=== PATIENT | female | born 1950 | race Two or more races ===

== ENCOUNTER 2018-03-13 11:08 | Day surgery (SDC) | payer MEDICARE, BC ==
--- NOTE | 2018-03-12 22:08 | Pre-Procedure Note/Attestation ---
Pre-Procedure Note/Attestation Complete Prior to Procedure Planned Procedure: left Procedure Narrative: Removal of pterygium and placement of conjunctival autograft with possible Mitomycin - C, left eye Indications for Procedure Pre-Operative Diagnosis: Progressive pterygium, left eye Attestation I attest that I discussed the nature of the procedure; its benefits; risks and complications; and alternatives (and the risks and benefits of such alternatives ), prior to the procedure, with the patient (or the patient's legal inbound sales representative). I attest that, if there was a reasonable possibility of needing a blood transfusion, the patient (or the patient's legal inbound sales representative) was given the [place] Department of Health Services standardized written summary, pursuant to the Jeromy Laurier Blood Safety Act ([place] Health and Safety Code # 1645, as amended). I attest that I re-evaluated the patient just prior to the surgery and that there has been no change in the patient's H&P, except as documented below: Paresh Chapman MD Mar 12, 2018 22:08
[2018-03-13] VITALS (9 sets, daily range): BP systolic 154–180; BP diastolic 81–99
[~2018-03-13] VITALS: Ht 152.4 cm; Wt 50.8 kg
[~2018-03-13 11:08] MED LIST: MitoMYcin Opth 0.2 mg/ml Syringe LEFT EYE ONE
[2018-03-13] MEDS ORDERED: AMLODIPINE BES2.5 MG ORAL (12:03)
[2018-03-13] MEDS ORDERED: PANTOPRAZOLE SO40 MG ORAL (12:04)
[2018-03-13] MEDS ORDERED: BENICAR20 MG ORAL (12:05)
[2018-03-13] MEDS: Tobradex Opth Susp 2.5ml LEFT EYE SCH ×3 (12:24→12:38)
[2018-03-13] MEDS: Vigamox Opth Soln 3ml LEFT EYE SCH ×3 (12:25→12:38)
[2018-03-13] MEDS: Akten 3.5% 1ml Btl LEFT EYE SCH ×3 (12:26→12:38)
[2018-03-13] MEDS ORDERED: Lidocaine 2% MPF 5ml Vial INJ ONE (15:56)
[2018-03-13] MEDS ORDERED: Bupivacaine 0.75% 30ml vial INJ ONE (15:57)
[2018-03-13] MEDS ORDERED: BSS 15ml BTL ONE ×3 (15:57→17:51)
[2018-03-13] MEDS ORDERED: Tetracaine 0.5% Opth 4ml Soln ONE (15:57)
[2018-03-13] MEDS ORDERED: Lidocaine 2% 20mg/ml/Epi 0.005mg/ml 20ml vial ONE (16:15)
[2018-03-13] MEDS ORDERED: Sterile Water Irrig 1000ml IRRIG ONE (17:00)
[2018-03-13] MEDS ORDERED: LR 1000ml ONE (17:00)
[2018-03-13] MEDS ORDERED: NS Irrig 1000ml ONE (17:00)
[2018-03-13] MEDS ORDERED: Midazolam 2mg/2ml Inj ONE (17:10)
[2018-03-13] MEDS ORDERED: Alfentanil 2ml Inj ONE (17:10)
[2018-03-13] MEDS ORDERED: Lidocaine 1% MPF 10mg/ml 5ml ONE (17:11)
[2018-03-13] MEDS ORDERED: Propofol 200mg/20ml IV ONE (17:11)
[2018-03-13] MEDS ORDERED: LR 1000ml 1,000 ML IVLG SCH (17:27)
[2018-03-13] MEDS ORDERED: Atropine Sulfate 0.4mg/ml inj IVP PRN (17:30)
[2018-03-13] MEDS ORDERED: LORazepam Inj 2mg/ml 1ml IV PRN (17:30)
[2018-03-13] MEDS ORDERED: Midazolam 2mg/2ml Inj IVP PRN (17:30)
[2018-03-13] MEDS ORDERED: oxyCODONE HCL/Acetaminophen 5/325mg ORAL PRN (17:30)
[2018-03-13] MEDS ORDERED: Metoclopramide 10mg/2ml Inj IVP PRN (17:30)
[2018-03-13] MEDS ORDERED: Norco 5mg/325mg tab ORAL PRN (17:30)
[2018-03-13] MEDS ORDERED: DiphenhydrAMINE 50mg/ml Inj IVP PRN (17:30)
[2018-03-13] MEDS ORDERED: Ketorolac 30mg Inj IV PRN ×2 (17:30)
[2018-03-13] MEDS ORDERED: fentaNYL 100 mcg/2 mL IV PRN (17:30)
[2018-03-13] MEDS ORDERED: Meperidine 50mg/ml Inj(FOR RIGORS ONLY) IVP PRN (17:30)
[2018-03-13] MEDS ORDERED: HYDROcodone/Acetamin 7.5/325 tab ORAL PRN (17:30)
[2018-03-13] MEDS ORDERED: Hydromorphone 0.5mg/0.5ml inj IVP PRN (17:30)
--- NOTE | 2018-03-13 17:30 | Anethesia Preoperative Eval ---
Anesthesia Pre-op PMH/ROS General Date of Evaluation: Mar 13, 2018 Time of Evaluation: 17:01 Anesthesiologist: Chang ASA Score: ASA 3 Mallampati Score Class I : Soft palate, uvula, fauces, pillars visible Class II: Soft palate, uvula, fauces visible Class III: Soft palate, base of uvula visible Class IV: Only hard plate visible Mallampati Classification: Class II Surgeon: Ari Diagnosis: Pterygium OS Surgical Procedure: Pterygium Removal OS Anesthesia History: none Family History: no anesthesia problems Allergies: Coded Allergies: No Known Allergies (Unverified , 03/12/18) Medications: see eMAR Patient NPO?: Yes Past Medical History Cardiovascular: Reports: HTN Gastrointestinal/Genitourinary: Reports: GERD Musculoskeletal/Integumentary: Reports: OA Anesthesia Pre-op Phys. Exam Physician Exam Last Vital Signs Date Time Temp Pulse Resp B/P (MAP) Pulse Ox O2 Delivery O2 Flow Rate FiO2 03/13/18 12:29 96.6 56 18 156/81 99 Room Air Constitutional: NAD Neurologic: CN 2-12 intact Cardiovascular: RRR Respiratory: CTA Gastrointestinal: S/NT/ND Airway Exam Mallampati Score: Class II MO: full ROM: limited Teeth: missing, intact Anesthesia Pre-op A/P Risk Assessment & Plan Assessment: ASA 3 Plan: GA, Block Status Change Before Surgery: Nitin Jolley MD Mar 13, 2018 17:30
--- NOTE | 2018-03-13 17:31 | Immediate Post-Op Evaluation ---
Immediate Post-Op Evalulation Immediate Post-Op Evalulation Procedure: Pterygium OS Date of Evaluation: Mar 13, 2018 Time of Evaluation: 18:30 IV Fluids: 1000 LR Blood Products: 0 Estimated Blood Loss: 1 Urinary Output: 0 Blood Pressure Systolic: 180 Blood Pressure Diastolic: 99 Pulse Rate: 75 Respiratory Rate: 16 O2 Sat by Pulse Oximetry: 100 Temperature (Fahrenheit): 97.1 Pain Score (1-10): 1 Nausea: No Vomiting: No Complications 0 Patient Status: awake, reacts, patent, none Hydration Status: adequate Nitin Downing MD Mar 13, 2018 17:31
--- NOTE | 2018-03-13 17:32 | 48 Hour Post Anesthesia Eval ---
Post Anesthesia Evaluation Procedure: Pterygium OS Date of Evaluation: Mar 13, 2018 Time of Evaluation: 20:34 Blood Pressure Systolic: 179 0: 98 Pulse Rate: 67 Respiratory Rate: 18 Temperature (Fahrenheit): 98.2 O2 Sat by Pulse Oximetry: 100 Airway: patent Nausea: No Vomiting: No Pain Intensity: 1 Hydration Status: adequate Cardiopulmonary Status: Stable Mental Status/LOC: patient returned to baseline Follow-up Care/Observations: 0 Post-Anesthesia Complications: 0 Follow-up care needed: ready to discharge Nitin Downing MD Mar 13, 2018 17:32
--- NOTE | 2018-03-13 18:18 | Discharge Instructions ---
Discharge Instructions Discharge Instructions Follow Up Orders Leave patch and shield in place until the appointment with Dr Chapman tomorrow Followup tomorrow in Dr Chapman's office For Congestive Heart Failure Reminder Report to your physician any weight gain of 5 pounds or more in one week. Paresh Chapman MD Mar 13, 2018 18:18
--- NOTE | 2018-03-13 18:21 | Brief Operative Note ---
Immediate Post Operative Note Operative Note Pre-op Diagnosis: Progressive pterygium, left eye Procedure: Removal of pterygium and placement of conjunctival autograft, OS Use of mitomycin - C Post-op Diagnosis: same as pre-op Surgeon: Nathalia Chapman MD MS Event Marketing Coordinator: none Anesthesiologist: Dr Downing Anesthesia: local, MAC Specimen: yes - pterygium Complications: none Fluids: see chart Implant(s) used?: No Paresh Chapman MD Mar 13, 2018 18:21
[2018-03-13] MEDS ORDERED: Carbachol 0.01% Op Soln 1.5ml vial ONE (18:37)
[2018-03-13] MEDS ORDERED: Dexamethasone 4mg/ml vial ONE (18:44)
--- NOTE | 2018-03-20 12:45 | Operative Note - Dictated ---
DATE OF OPERATION: 03/13/2018 SURGEON: Paresh Chapman M.D. RAZOR GRINDER SURGEON: None. ANESTHESIOLOGIST: Nitin Downing M.D. ANESTHESIA: Local/standby/monitored anesthesia care. PREOPERATIVE DIAGNOSIS: Progressive pterygium, left eye. POSTOPERATIVE DIAGNOSIS: Progressive pterygium, left eye. PROCEDURES: 1. Removal of pterygium, left eye. 2. Placement of conjunctival autograft, left eye. 3. Use of mitomycin-C, left eye. SPECIMENS: Pterygium to Pathology. COMPLICATIONS: None. INDICATIONS FOR SURGERY: The patient has had progressive growth of pterygium in the left eye and chronically red despite using steroid drops. The patient understands risks of surgery including infection, bleeding, need for further surgery, loss of vision, loss of the eye, recurrence and understands these risks and elects to proceed with surgery. FINDINGS: The patient had a pterygium measuring approximately 5 mm vertically x 2.5 mm horizontally. OPERATIVE NOTE: After informed consent was obtained, the patient was brought into the operating room and placed in supine position. Cardiac and respiratory monitors were attached. A time-out was performed and all criteria were met and everyone in the room agreed. Following IV sedation, a retrobulbar block followed by modified Van Lint block were given using a 50:50 mixture of 0.75% Marcaine and 1% lidocaine into the left eye. The left eye was then draped and prepped in sterile manner for ocular surgery. A lid speculum was placed in the eye. A double-arm 6-0 silk was placed through the superior and inferior limbus. The globe was rotated. The neck and tail of the pterygium were marked using a cautery. A 1% lidocaine was injected into the tail and neck of the pterygium to lift it off the sclera. There appeared to be no adhesions to the sclera. The tail and neck were then dissected free from the recipient. A hockey blade [place] blade was used to remove the head of the pterygium . Several pieces of Weck-Erum sponge soaked in 0.02% mitomycin were placed onto the scleral bed for approximately 1 minute. These were then removed and was irrigated copiously with 2 bottles of BSS. The wound was then rotated inferiorly and the corresponding conjunctiva was marked according to the recipient bed. This was then injected with 1% lidocaine and then was dissected free as an autograft. into the recipient bed as well as onto the donor posterior surface of the autograft. The autograft was then placed into the recipient bed and smoothed with a muscle hook. There was also approximately four 8-0 Vicryl sutures were placed to reapproximate the recipient conjunctival margins. The lid speculum and drapes were removed from the eye and then the 6-0 silk suture was removed. Sub-Tenon's injections of Decadron and gentamicin were then given. The lid speculum and drapes were removed from the eye and drops of Pred Forte and Vigamox were applied to the eye followed by Maxitrol ointment and then two patches and a shield. The patient left the operating room in awake, alert, and in stable condition. Paresh Chapman M.D. DR: WILL JOB#: [id number] CC:
== END 2018-03-13 19:30 | disposition home or self-care (01) ==
LOC: SUR 11:08
DX: H11.002 Unspecified pterygium of left eye (principal); I12.9 Hypertensive chronic kidney disease with stage 1 through stage 4 chronic kidney disease, or unspecified chronic kidney disease; N18.2 Chronic kidney disease, stage 2 (mild); K21.9 Gastro-esophageal reflux disease without esophagitis; M19.90 Unspecified osteoarthritis, unspecified site
CPT/HCPCS: 65426; J0360; J1100; J1885; J2250; J2704; J3490; J7315; 94003; 94150

== ENCOUNTER 2018-07-10 08:43 | Day surgery (SDC) | payer MEDICARE, BC ==
[2018-07-10] VITALS (11 sets, daily range): BP systolic 136–167; BP diastolic 80–92
[~2018-07-10] VITALS: Ht 152.4 cm; Wt 51.7 kg
--- NOTE | 2018-07-10 07:18 | Pre-Procedure Note/Attestation ---
Pre-Procedure Note/Attestation Complete Prior to Procedure Planned Procedure: right - removal of pterygium and placement of conjunctival autograft, right eye Procedure Narrative: removal of pterygium and placement of conjunctival autograft, right eye Indications for Procedure Pre-Operative Diagnosis: Large pterygium, right eye Attestation I attest that I discussed the nature of the procedure; its benefits; risks and complications; and alternatives (and the risks and benefits of such alternatives ), prior to the procedure, with the patient (or the patient's legal employee relations representative). I attest that, if there was a reasonable possibility of needing a blood transfusion, the patient (or the patient's legal employee relations representative) was given the [place] Department of Health Services standardized written summary, pursuant to the Jeromy Jerry Blood Safety Act ([place] Health and Safety Code # 1645, as amended). I attest that I re-evaluated the patient just prior to the surgery and that there has been no change in the patient's H&P, except as documented below: Paresh Chapman MD Jul 10, 2018 07:18
[~2018-07-10 08:43] MED LIST changes: +AMLODIPINE BES2.5 MG ORAL; +BENICAR20 MG ORAL; -MitoMYcin Opth 0.2 mg/ml Syringe LEFT EYE ONE; +PANTOPRAZOLE SO40 MG ORAL
[2018-07-10] MEDS: Vigamox Opth Soln 3ml RIGHT EYE SCH ×3 (09:13→09:53)
[2018-07-10] MEDS: Akten 3.5% 1ml Btl RIGHT EYE SCH ×3 (09:14→09:54)
[2018-07-10] MEDS: Tobradex Opth Susp 2.5ml RIGHT EYE SCH ×3 (09:14→09:53)
[2018-07-10] MEDS ORDERED: Alfentanil 2ml Inj ONE (10:16)
[2018-07-10] MEDS ORDERED: Midazolam 2mg/2ml Inj ONE (10:16)
[2018-07-10] MEDS ORDERED: Lidocaine 1% MPF 10mg/ml 5ml ONE ×2 (10:30→11:30)
[2018-07-10] MEDS ORDERED: BSS 15ml BTL ONE (10:31)
[2018-07-10] MEDS ORDERED: Povidone-Iodine 5% opth solution ONE (10:31)
[2018-07-10] MEDS ORDERED: Lidocaine 2% 20mg/ml/Epi 0.005mg/ml 20ml vial ONE (10:31)
[2018-07-10] MEDS ORDERED: Maxitrol Opth Oint 3.5gm ONE (10:31)
[2018-07-10] MEDS ORDERED: Bupivacaine 0.75% 30ml vial INJ ONE (10:31)
[2018-07-10] MEDS ORDERED: Tetracaine 0.5% Opth 4ml Soln ONE (10:31)
[2018-07-10] MEDS ORDERED: LR 1000ml 1,000 ML IVLG SCH (11:01)
--- NOTE | 2018-07-10 11:06 | Anethesia Preoperative Eval ---
Anesthesia Pre-op PMH/ROS General Date of Evaluation: Jul 10, 2018 Time of Evaluation: 11:24 Anesthesiologist: Chang ASA Score: ASA 3 Mallampati Score Class I : Soft palate, uvula, fauces, pillars visible Class II: Soft palate, uvula, fauces visible Class III: Soft palate, base of uvula visible Class IV: Only hard plate visible Mallampati Classification: Class II Surgeon: Ari Diagnosis: Pterygium OD Surgical Procedure: Pterygium Removal With Conjunctival Autograft Anesthesia History: none Family History: no anesthesia problems Allergies: Coded Allergies: No Known Allergies (Unverified , 03/12/18) Medications: see eMAR Patient NPO?: Yes Past Medical History Cardiovascular: Reports: HTN Gastrointestinal/Genitourinary: Reports: GERD HEENT: Reports: cataract (L), cataract (R) Musculoskeletal/Integumentary: Reports: OA PSxH Narrative: Pterygium Removal 1 year [employer] Anesthesia Pre-op Phys. Exam Physician Exam Last Vital Signs Date Time Temp Pulse Resp B/P (MAP) Pulse Ox O2 Delivery O2 Flow Rate FiO2 07/10/18 09:52 Room Air 07/10/18 09:17 97.0 56 18 149/80 98 Constitutional: NAD Neurologic: CN 2-12 intact Cardiovascular: RRR Respiratory: CTA Gastrointestinal: S/NT/ND Airway Exam Mallampati Score: Class II MO: full ROM: limited Teeth: missing, intact Anesthesia Pre-op A/P Risk Assessment & Plan Assessment: ASA 3 Plan: GA Status Change Before Surgery: No Nitin Downing MD Jul 10, 2018 11:06
[2018-07-10] MEDS ORDERED: Hydromorphone 0.5mg/0.5ml inj IVP PRN (11:15)
[2018-07-10] MEDS ORDERED: DiphenhydrAMINE 50mg/ml Inj IVP PRN (11:15)
[2018-07-10] MEDS ORDERED: Ketorolac 30mg Inj IV PRN ×2 (11:15)
[2018-07-10] MEDS ORDERED: oxyCODONE HCL/Acetaminophen 5/325mg ORAL PRN (11:15)
[2018-07-10] MEDS ORDERED: Atropine Sulfate 0.4mg/ml inj IVP PRN (11:15)
[2018-07-10] MEDS ORDERED: Midazolam 2mg/2ml Inj IVP PRN (11:15)
[2018-07-10] MEDS ORDERED: Meperidine 50mg/ml Inj(FOR RIGORS ONLY) IVP PRN (11:15)
[2018-07-10] MEDS ORDERED: HYDROcodone/Acetamin 5/325 tab ORAL PRN (11:15)
[2018-07-10] MEDS ORDERED: HYDROcodone/Acetamin 7.5/325 tab ORAL PRN (11:15)
[2018-07-10] MEDS ORDERED: LORazepam Inj 2mg/ml 1ml IV PRN (11:15)
[2018-07-10] MEDS ORDERED: Labetalol 5mg/ml 20ml vial IV PRN (11:15)
[2018-07-10] MEDS ORDERED: Metoclopramide 10mg/2ml Inj IVP PRN (11:15)
[2018-07-10] MEDS ORDERED: fentaNYL 100 mcg/2 mL IV PRN (11:15)
[2018-07-10] MEDS ORDERED: Sterile Water Irrig 1000ml IRRIG ONE (11:30)
[2018-07-10] MEDS ORDERED: LR 1000ml ONE (11:30)
[2018-07-10] MEDS ORDERED: NS Irrig 1000ml ONE (11:30)
[2018-07-10] MEDS ORDERED: Propofol 200mg/20ml IV ONE (11:30)
[2018-07-10] MEDS ORDERED: Lidocaine 1% 10mg/ml/Epi 0.005mg/ml 30ml vial INJ ONE (11:38)
--- NOTE | 2018-07-10 11:56 | Immediate Post-Op Evaluation ---
Immediate Post-Op Evalulation Immediate Post-Op Evalulation Procedure: Pterygium Removal With Conjunctival Autograft Date of Evaluation: Jul 10, 2018 Time of Evaluation: 12:44 IV Fluids: 700 LR Blood Products: 0 Estimated Blood Loss: 25 Urinary Output: 0 Blood Pressure Systolic: 167 Blood Pressure Diastolic: 92 Pulse Rate: 59 Respiratory Rate: 16 O2 Sat by Pulse Oximetry: 100 Temperature (Fahrenheit): 97.4 Pain Score (1-10): 1 Nausea: No Vomiting: No Complications 0 Patient Status: awake, reacts, patent, none Hydration Status: adequate Nitin Downing MD Jul 10, 2018 11:56
--- NOTE | 2018-07-10 11:56 | 48 Hour Post Anesthesia Eval ---
Post Anesthesia Evaluation Procedure: Pterygium Removal With Conjunctival Autograft Date of Evaluation: Jul 10, 2018 Time of Evaluation: 14:51 Blood Pressure Systolic: 158 0: 93 Pulse Rate: 62 Respiratory Rate: 18 Temperature (Fahrenheit): 98.2 O2 Sat by Pulse Oximetry: 99 Airway: patent Nausea: No Vomiting: No Pain Intensity: 1 Hydration Status: adequate Cardiopulmonary Status: Stable Mental Status/LOC: patient returned to baseline Follow-up Care/Observations: 0 Post-Anesthesia Complications: 0 Follow-up care needed: ready to discharge Nitin Downing MD Jul 10, 2018 11:56
[2018-07-10] MEDS ORDERED: Dexamethasone 20mg/5ml ONE (12:21)
[2018-07-10] MEDS ORDERED: Dexamethasone 4mg/ml vial ONE (12:21)
--- NOTE | 2018-07-10 12:44 | Discharge Instructions ---
Discharge Instructions Discharge Instructions Follow Up Orders Keep patch and shield in place F/U tomorrow in Dr Chapman's office Return to Work/School on: Jul 10, 2018 For Congestive Heart Failure Reminder Report to your physician any weight gain of 5 pounds or more in one week. Paresh Chapman MD Jul 10, 2018 12:44
--- NOTE | 2018-07-10 12:46 | Brief Operative Note ---
Immediate Post Operative Note Operative Note Pre-op Diagnosis: Large pterygium, right eye Procedure: Removal of pterygium with placement of conjunctival autograft, OD Post-op Diagnosis: same as pre-op Surgeon: Nathalia Chapman MD MS Jr. Java Developer: none Anesthesiologist: Gemma Downing MD Anesthesia: local, MAC Specimen: none Complications: none Fluids: see chart Implant(s) used?: No Paresh Chapman MD Jul 10, 2018 12:46
[2018-07-10] MEDS ORDERED: HYDROcodone/Acetamin 5/325 tab ONE (13:13)
--- NOTE | 2018-07-11 02:15 | Operative Note - Dictated ---
DATE OF OPERATION: 07/10/2018 SURGEON: Paresh Chapman M.D. DIRECTOR OF QUALITY CONTROL SURGEON: None. ANESTHESIOLOGIST: Nitin Downing M.D. ANESTHESIA: Local/standby/monitored anesthesia care. PREOPERATIVE DIAGNOSIS: Large pterygium, right eye. POSTOPERATIVE DIAGNOSIS: Large pterygium, right eye. PROCEDURE: 1. Excision of pterygium, right eye. 2. Placement of conjunctival autograft, right eye. SPECIMENS: None. COMPLICATIONS: None. INDICATIONS FOR SURGERY: The patient has had progressive growth of the pterygium in the right eye that is encroaching on the visual axis. The patient understands the risks of surgery including infection, bleeding, need for further surgery, loss of vision, loss of the eye, glaucoma, retinal detachment, recurrence of growth, and understands these risks and elects to proceed with surgery. FINDINGS: The patient had a nasal pterygium measuring approximately 2.4 mm horizontally x approximately 4.7 mm vertically. OPERATIVE NOTE: After informed consent was obtained, the patient was brought into the operating room and placed in supine position. Cardiac and respiratory monitors were attached. A time-out was performed and all criteria were met and everyone in the room agreed. After IV sedation, a retrobulbar block followed by modified Van Lint block were given using 50:50 mixture of 0.75% Marcaine and 1% lidocaine. The right eye was then draped and prepped in a sterile manner for ocular surgery. A lid speculum was placed in the eye. A 1% lidocaine preservative-free with epi was injected into the tail and the neck of the pterygium. The borders of the pterygium were previously marked using a cautery. The tail and body of the pterygium was then excised going up to the limbus using 0.12 forceps and Joselyn scissors. A hockey-stick blade then helped to remove the lesion on the cornea. A nahed bur was used to smooth the cornea. Attention was paid to the donor autograft area superiorly where it was measured to be approximately 4 mm wide x approximately 12 mm in length. This was . A 1% lidocaine preservative-free was injected into the conjunctiva and it was dissected free from the sclera. It was placed onto the cornea and Tisseel glue was applied to the recipient bed and then this was followed by the donor conjunctiva to be placed in the recipient bed. The limbal area of the donor conjunctiva was placed into the limbal area of the recipient bed. This was done after the Tisseel glue was placed and the graft was smoothed using a muscle hook as well. of the grafts were reapproximated to the recipient conjunctiva also. An 8-0 Vicryl suture was placed at two points both superiorly and inferiorly and one at the lateral edge in the mid part of the donor graft. The previously placed 6-0 silk suture that was placed at the superior and inferior limbus was then removed. Subtenon injections of Decadron and gentamicin were given followed by moxifloxacin drops as well as TobraDex drops and then Maxitrol ointment and a shield. The patient tolerated the procedure well and left the operating room awake, alert, and in stable condition. Paresh Chapman M.D. DR: WILD JOB#: [id number] CC:
== END 2018-07-10 14:00 | disposition home or self-care (01) ==
LOC: SUR 08:43
DX: H11.001 Unspecified pterygium of right eye (principal); K21.9 Gastro-esophageal reflux disease without esophagitis; I10 Essential (primary) hypertension; M19.90 Unspecified osteoarthritis, unspecified site; E78.5 Hyperlipidemia, unspecified; Z79.899 Other long term (current) drug therapy
CPT/HCPCS: 65426; J1100; J2250; J2704; J3490; 94003; 94150